=== PATIENT | male | born 1985 | race Hispanic/Latino ===

== ENCOUNTER 2017-03-23 06:45 | Emergency (ER) | payer BC ==
[2017-03-23 07:01] VITALS: BP 143/105; PULSE 87; RESP 16; TEMP 98.6; O2SAT 97
--- NOTE | 2017-03-23 07:43 | ED PDOC ---
Lower Extremity Pain/Injury Time Seen by Provider: 03/23/17 07:18 Chief Complaint (Nursing): Lower Extremity Problem/Injury Chief Complaint (Provider): Lower extremity injury History Per: Patient History/Exam Limitations: no limitations Onset/Duration Of Symptoms: Days (x1) Current Symptoms Are (Timing): Still Present Pain Scale Rating Of: 6 Additional Complaint(s): Liu Irwin is a 31 year old male, with no past medical history, who presents to the emergency department complaining of pain in right foot associated with swelling onset yesterday. Patient reports that he was kicked in the right foot while playing soccer last night. Patient states he has difficulty ambulating. He denies any fever or chills. No further medical complaints. PMD: None provided. - Ankle/Foot Description Of Injury: Other (kicked in right foot) Currently Unable To: Other (difficulty ambulating) Past Medical History Reviewed: Historical Data, Nursing Documentation, Vital Signs Vital Signs: Last Vital Signs Temp 98.6 F 03/23/17 06:59 Pulse 87 03/23/17 06:59 Resp 16 03/23/17 06:59 BP 143/105 H 03/23/17 06:59 Pulse Ox 97 03/23/17 06:59 - Family History Family History: States: Unknown Family Hx - Home Medications Home Medications: Ambulatory Orders Medication Instructions Recorded Naproxen [Naprosyn] 500 mg PO Q12H #20 tab 03/23/17 - Allergies Allergies/Adverse Reactions: Allergies Allergy/AdvReac Type Severity Reaction Status Date / Time No Known Allergies Allergy Verified 03/23/17 06:59 Review of Systems ROS Statement: Except As Marked, All Systems Reviewed And Found Negative Constitutional: Negative for: Fever, Chills Musculoskeletal: Positive for: Foot Pain (right foot pain and swelling) Physical Exam - Reviewed Nursing Documentation Reviewed: Yes Vital Signs Reviewed: Yes - Physical Exam Appears: Positive for: Well, Non-toxic, No Acute Distress Head Exam: Positive for: ATRAUMATIC, NORMAL INSPECTION, NORMOCEPHALIC Skin: Positive for: Normal Color, Warm, Dry Eye Exam: Positive for: EOMI, Normal appearance, PERRL Neck: Positive for: Normal, Painless ROM, Supple Cardiovascular/Chest: Positive for: Regular Rate, Rhythm. Negative for: Murmur Respiratory: Positive for: Normal Breath Sounds. Negative for: Respiratory Distress Gastrointestinal/Abdominal: Positive for: Normal Exam, Bowel Sounds, Soft. Negative for: Tenderness, Guarding, Rebound Back: Positive for: Normal Inspection. Negative for: L CVA Tenderness, R CVA Tenderness, Vertebral Tenderness Extremity: Positive for: Normal ROM, Tenderness (lateral aspect of foot), Swelling (right foot mild). Negative for: Deformity (to right foot), Other (No tenderness or swelling of ankle) Neurologic/Psych: Positive for: Alert, Oriented. Negative for: Motor/Sensory Deficits - ECG O2 Sat by Pulse Oximetry: 97 (RA) Pulse Ox Interpretation: Normal Medical Decision Making Medical Decision Making: Initial Impression: right foot injury Initial Plan: --Ankle right 3 views routine [RAD] --Foot right 3 views routine [RAD] --reevaluation Scribe Attestation: Documented by Jose Antonio Shin, acting as a scribe for Victor Manuel Colon MD Provider Scribe Attestation: All medical record entries made by the Scribe were at my direction and personally dictated by me. I have reviewed the chart and agree that the record accurately reflects my personal performance of the history, physical exam, medical decision making, and the department course for this patient. I have also personally directed, reviewed, and agree with the discharge instructions and disposition. Disposition - Clinical Impression Clinical Impression: Foot sprain - Patient ED Disposition Is Patient to be Admitted: No Counseled Patient/Family Regarding: Studies Performed, Diagnosis, Need For Followup, Rx Given - Disposition Referrals: Podiatry Clinic [Outside] Disposition: Routine/Home Disposition Time: 08:00 Condition: FAIR Prescriptions: Naproxen [Naprosyn] 500 mg PO Q12H #20 tab Instructions: Foot Sprain (ED) Forms: [employer] (E[place]ian)
--- NOTE | 2017-03-23 09:39 | CP.PCM.CON ---
History of Present Illness - History of Present Illness History of Present Illness: 31 year old male seen in ED for painful right foot. Patient states that during a soccer game last night he was kicked in the side of the foot. He says that he is having trouble bearing weight at this time. His pain is isolated to his lateral foot at the level of the fifth metatarsal shaft. Patient states that he has been icing his foot. He denies any further pedal complaints at this time. He denies N/V/F/C/CP/SOB Review of Systems - Review of Systems Review of Systems: ROS unremarkable outside of HPI Past Patient History - Past Social History Smoking Status: Never Smoked - PSYCHIATRIC Hx Substance Use: No - SURGICAL HISTORY Hx Surgeries: Yes Hx Orthopedic Surgery: Yes (toe) Hx Tonsillectomy: Yes - ANESTHESIA Hx Anesthesia: No Meds Home Medications: Home Medication List Medication Instructions Recorded Confirmed Type Naproxen [Naprosyn] 500 mg PO Q12H #20 tab 03/23/17 Rx Allergies/Adverse Reactions: Allergies Allergy/AdvReac Type Severity Reaction Status Date / Time No Known Allergies Allergy Verified 03/23/17 06:59 Physical Exam - Constitutional Appears: Well, Non-toxic, No Acute Distress - Extremities Exam Additional comments: LE focused exam Vasc: DP/PT pulses palpable 2/4 b/l. Skin temperature warm to warm from proximal to distal. CFT < 3 seconds to all digits b/l. Pedal hair growth appreciated. No edema noted b/l Neuro: Epicritic and protective sensation grossly intact b/l Derm: No open lesions, wounds, maceration, xerosis, abnormal pigmentation or abnormal growths noted. Nails noted to be well normotrophic, of appropriate color and adequate length MSK: POP noted to lateral side of right foot at fifth met shaft. MMT 5/5 on inversion, eversion, dorsiflexion and plantarflexion of feet b/l. ROM WNL to all major joints of LE - Neurological Exam Neurological exam: Alert, Oriented x3 - Psychiatric Exam Psychiatric exam: Normal Affect, Normal Mood Results - Vital Signs Recent Vital Signs: Last Vital Signs Temp 98.6 F 03/23/17 06:59 Pulse 87 03/23/17 06:59 Resp 16 03/23/17 06:59 BP 143/105 H 03/23/17 06:59 Pulse Ox 97 03/23/17 08:01 Assessment & Plan - Assessment and Plan (Free Text) Assessment: 31 year old male seen in ED for lateral right foot pain secondary to being kicked Plan: Patient seen and evaluated in ED Charts, labs and vitals reviewed Xray of right foot and ankle reviewed: No indication of acute fracture or bony injury. Lis franc joint noted to be congruous Patient's foot wrapped in modified gonzalez compression and dispensed crutches Patient advised to weight bear as tolerated, RICE, and take NSAIDs as needed Patient told that if pain does not improve over the next few days he should follow up with a facilities clerk as an outpatient where an MRI may be warranted - Date & Time Date: 03/23/17 Time: 08:41
--- NOTE | 2017-03-23 11:38 | RAD ---
PROCEDURE: Right Ankle Radiographs. HISTORY: trauma COMPARISON: None FINDINGS: BONES: Normal. No fracture. JOINTS: Normal. No osteoarthritis. Ankle mortise maintained. Talar dome intact SOFT TISSUES: Normal. OTHER FINDINGS: None. IMPRESSION: No acute findings related to/accounting for the clinical presentation. Please note: No preliminary interpretation of this examination rendered by emergency department personnel.
--- NOTE | 2017-03-23 12:16 | RAD ---
PROCEDURE: Right Foot Radiographs. HISTORY: trauma COMPARISON: None. FINDINGS: BONES: Normal. No fracture. JOINTS: Normal. SOFT TISSUES: Normal. OTHER FINDINGS: None. IMPRESSION: No acute findings related to/accounting for the clinical presentation. Please note: No preliminary interpretation of this examination rendered by emergency department personnel.
== END 2017-03-23 09:00 | disposition home or self-care (01) ==
LOC: H.ER 06:45
DX: S93.601A Unspecified sprain of right foot, initial encounter (principal); W21.31XA Struck by shoe cleats, initial encounter; Y93.66 Activity, soccer